=== PATIENT | male | born 1960 ===

== ENCOUNTER 2017-01-22 07:48 | Day surgery (SDC) | payer OTHER ==
[2017-01-18 10:18] VITALS: BMI 34.7
[2017-01-22 08:11] LABS: ADD MANUAL DIFF? NO
[2017-01-22 08:14] LABS: BASO # 0.04 K/mm3 (0.0-2.0); BASO % 0.7 % (0.0-3.0); EOS # 0.1 (0.0-0.7); EOS % 2.2 % (1.5-5.0); GRAN # 2.54 (1.4-6.5); GRAN % 46.5 % (50.0-68.0); LYMPH # 2.4 (1.2-3.4); LYMPH % 44.4 % (22.0-35.0); MEAN CELL VOLUME 92.5 fL (80.0-105.0); MEAN CORPUSCULAR HEMOGLOBIN 30.3 pg (25.0-35.0); MEAN CORPUSCULAR HGB CONC 32.8 g/dl (31.0-37.0); MEAN PLATELET VOLUME 10.2 fl (7.0-11.0); MONO # 0.3 (0.1-0.6); MONO % 6.2 % (1.0-6.0); PLATELET COUNT 193 10^3/uL (120.0-450.0); RED CELL DISTRIBUTION WIDTH 13.2 % (11.5-14.5); WHITE BLOOD COUNT 5.5 10^3/ul (4.5-11.0)
[2017-01-22 08:23] LABS: ALB/GLOB RATIO 1.2 (1.1-1.8); ALKALINE PHOSPHATASE 98 U/L (38-133); ALT/SGPT 55 U/L (7-56); AST/SGOT 36 U/L (15-59); BILIRUBIN,TOTAL 0.7 mg/dL (0.2-1.3); BLOOD UREA NITROGEN 14 mg/dL (7-21); CALCIUM 9.6 mg/dL (8.4-10.5); CARBON DIOXIDE 26 mmol/L (21-33); CHLORIDE 102 mmol/L (98-107); GFR AFRICAN-AMERICAN > 60; GLUCOSE,RANDOM 109 mg/dL (70-110); POTASSIUM 3.9 mmol/L (3.6-5.0); SODIUM 138 mmol/L (132-148); TOTAL PROTEIN 7.9 g/dL (5.8-8.3)
[2017-01-22 08:25] LABS: INR 0.98 (0.93-1.08); PARTIAL THROMBOPLASTIN TIME 27.2 Seconds (23.7-30.8)
[2017-01-22] MEDS ORDERED: Lidocaine 2% Inj (20ml) ONE (08:36)
[2017-01-22] MEDS ORDERED: Iodixanol 320 MG/ML 200 ML BOTTLE IV ONE (08:37)
[2017-01-22] MEDS ORDERED: Midazolam 2 MG/2 ML VIAL ONE ×2 (08:44→10:26)
[2017-01-22] MEDS ORDERED: Sodium Chloride 0.9% 1,000 ML IV SCH (11:00)
[2017-01-22] MEDS ORDERED: Bacitracin 500 Units/gm Oint Foilpak UD ONE (12:55)
[2017-01-22] MEDS ORDERED: Oxycodone/Acetaminophen 5/325 mg Tab PO ONE (14:00)
[2017-01-22 19:57] VITALS: BP 144/86; PULSE 96; RESP 20; TEMP 98.1; O2SAT 96
--- NOTE | 2017-01-22 22:27 | CARD ---
APPROVED REPORT EKG Measurement Heart [id number] <Conclusion> Normal sinus rhythm Nonspecific T wave abnormality Abnormal ECG
--- NOTE | 2017-01-24 17:27 | CARD ---
APPROVED REPORT Procedure(s) performed: Left Heart Catheterization Left Ventriculogram Coronary Angiography and Percutaneous Coronary Intervention HISTORY : The patient is a former smoker , hypertension . INDICATION The indication(s) include : positive stress test, unstable angina . CASE TECHNIQUE The patient was brought electively to the Cardiac Catheterization Laboratory in a fasting state and was prepped and draped in a sterile manner. The right femoral groin was infiltrated with 2% Lidocaine subcutaneous anesthesia. A 6 Fr x 11 cm Cintia sheath was inserted using coronary diagnostic catheters. The left coronary system was accessed and visualized with a 6 Fr JL 4 catheter. The right coronary system was accessed and visualized with a 6 Fr JR 4 catheter. The left ventricle was accessed and visualized with a 6 Fr JR 4 catheter. Left ventricular/Aortic Valve gradient assessed on pullback. Left ventriculogram was performed in ALVES projection. The patient tolerated the procedure well and there were no complications associated with the procedure. Vessel Analysis The patient's coronary anatomy is left dominant. The left main coronary artery is a medium size vessel without stenosis. The left main bifurcates to the left anterior descending and circumflex. The left anterior descending artery is a medium size vessel . There is a 50% stenosis . The circumflex artery is a medium size vessel . There is a 90% stenosis in the proximal segment. The right coronary artery is a small size vessel without stenosis. It is a nondominant vessel.. Left Ventricle The left ventricular ejection fraction is estimated to be 55%. There was no gradient across the aortic valve upon pullback. PCI Technique Lesion Percutaneous coronary intervention was performed on the proximal circumflex artery segment. The lesion stenosis prior to intervention was 90% with SIMIN 3 flow. A 7 Fr XB 3.5 Guide Catheter was used to engage the ostium. A 0.014 x 190 cm BMW Ingalls II J Tip Interventional Guidewire was used to cross the lesion. BALLOON DILATION A Balloon catheter 3.0 x 15 mm Sprinter RX was inserted and inflated up to 8.00atm for 11seconds. Repeat angiography revealed the following post-dilatation results: moderate residual stenosis. STENT DEPLOYMENT A drug-eluting stent 3.5 x 18 mm Resolute REGINA was inserted and inflated up to 10.00atm for 10seconds. Repeat angiography revealed the following post-stent deployment results: excellent stent expansion. Final angiography reveals 0 % stenosis with SIMIN 3 flow. Conclusion Successful PCI proximal left circumflex artery with a Resolute drug eluting stent. Recommendations Aggressive Medical Therapy Weight Loss Reduction Program ASA 81 mg daily. Plavix 75 mg daily.
== END 2017-01-22 20:59 | disposition home or self-care (01) ==
LOC: CATH 07:48 → 2RSO 11:25 → CATH 20:59
PROVIDERS: ATTEND Internal Medicine Cardiovascular Disease
DX: I25.110 Atherosclerotic heart disease of native coronary artery with unstable angina pectoris (principal); I10 Essential (primary) hypertension; E78.00 Pure hypercholesterolemia, unspecified; Z87.891 Personal history of nicotine dependence
CPT/HCPCS: 36415; 80053; 85025; 85175; 85576; 85610; 85730; 86850; 86900; 93005; 93458; 99152; 99153; C1725; C1769 ×2; C1874; C1887; C1894; C2629; C9600; J0583; J1644; J2250; J3010; J7030; J7040 ×2